=== PATIENT | male | born 1990 | race Caucasian/White ===

== ENCOUNTER → 2022-08-21 | Day surgery (SDC) | payer OTHER, MEDICAID ==
[~2022-08-21] MED LIST: Bupivacaine 0.5% 50 ML MDV ONE; Ketorolac 30 MG/ML SDV ONE; Lactated Ringers 1,000 ML IV ONE; Lactated Ringers 1,000 ML IV SCH; Lidocaine 1% PF 2 ML SDV ONE; Lidocaine 1% with EPINEPHrine 1:100,000 50 ML MDV ONE; Midazolam 1 MG/ML 2 ML SDV ONE; Propofol 200 MG/20 ML SDV ONE; cefOXitin 2 GM in Sodium Chloride 0.9% 50 ML IV ONE; fentaNYL 100 MCG/2 ML SDV ONE; fentaNYL 50 MCG/ML SDV IVPUSH PRN; hydrOXYzine HCL 100 MG/2 ML SDV IM ONE
== END ==
LOC: JP.SDS 06:00
DX: R59.0 Localized enlarged lymph nodes (principal); Z79.899 Other long term (current) drug therapy
CPT/HCPCS: 38500; 87070; 87075; 87102; 87205; 87220; 88307; 88341; 88342; 88364; 88365; J0694; J1885; J2250; J2704; J3010; J3410; J3490; J7120

== ENCOUNTER 2023-08-09 10:36 | Emergency (ER) | payer MEDICAID ==
[2023-08-09] MEDS ORDERED: Sodium Chloride 0.9% 1,000 ML IV SCH (12:45)
[2023-08-09] MEDS ORDERED: cefTRIAXone 1 GM in Sodium Chloride 0.9% 50 ML IV ONE (12:46)
[2023-08-09] MEDS ORDERED: Furosemide 40 MG/4 ML VIAL IVPUSH ONE (12:46)
[2023-08-09] MEDS ORDERED: diphenhydrAMINE 50 MG/ML SDV IVPUSH ONE (12:47)
[2023-08-09 13:15] LABS: BASOPHILS ABSOLUTE AUTO 0.08 K/uL (0.00-0.10); BASOPHILS PERCENT AUTO 0.6 % (0.1-1.3); EOSINOPHILS ABSOLUTE AUTO 0.16 K/uL (0.00-0.40); EOSINOPHILS PERCENT AUTO 1.2 % (0.0-5.4); HEMATOCRIT 34.8 % (38.4-49.7); HEMOGLOBIN 11.6 g/dL (12.9-16.9); IMMATURE GRAN ABSOLUTE AUTO 0.14 K/uL (0.00-0.23); IMMATURE GRAN PERCENT AUTO 1.1 % (0.0-0.7); LYMPHOCYTES ABSOLUTE AUTO 1.96 K/uL (0.8-3.3); LYMPHOCYTES PERCENT AUTO 15.1 % (11.4-47.7); MEAN CORPUSCULAR HEMOGLOBIN 35.7 pg (31.6-35.5); MEAN CORPUSCULAR HGB CONC 33.3 g/dL (31.6-35.5); MEAN CORPUSCULAR VOLUME 107.1 fL (81.4-99.0); MONOCYTES ABSOLUTE AUTO 1.18 K/uL (0.20-0.90); MONOCYTES PERCENT AUTO 9.1 % (3.3-12.6); NEUTROPHILS ABSOLUTE AUTO 9.44 K/uL (1.0-7.6); NEUTROPHILS PERCENT AUTO 72.9 % (40.0-78.1); PLATELET COUNT,PLT 433 K/uL (130-375); RED BLOOD CELL COUNT 3.25 M/uL (4.14-5.76)
[2023-08-09 13:16] LABS: CARBOXYHEMOGLOBIN 6.3 % (0.0-1.6); METHEMOGLOBIN 0.7 %; O2 SATURATION VENOUS 70.8; OXYHEMOGLOBIN 65.8 %; PCO2 VENOUS 58.9 mm/Hg; PO2 VENOUS 44.8 mm/Hg; TOTAL HEMOGLOBIN 11.8 g/dL (13.5-18.0)
[2023-08-09 13:44] LABS: APPEARANCE,URINE CLEAR (CLEAR); BILIRUBIN,URINE NEGATIVE (NEGATIVE); COLOR,URINE YELLOW (YELLOW); GLUCOSE,URINE NEGATIVE (NEGATIVE); KETONES,URINE NEGATIVE (NEGATIVE); LEUKOCYTE ESTERASE,URINE NEGATIVE (NEGATIVE); NITRITE,URINE NEGATIVE (NEGATIVE); OCCULT BLOOD,URINE TRACE-INTACT (NEGATIVE); PH,URINE 6.5 (5.0-8.0); PROTEIN,URINE NEGATIVE (NEGATIVE); UROBILINOGEN,URINE 0.2 EU/dL (0.2-1.0)
[2023-08-09 13:55] LABS: BASE EXCESS VENOUS 5.2 mm/L; BICARBONATE,VENOUS 31.7 mmol/L; PH,VENOUS 7.351 (7.350-7.450)
[2023-08-09 14:04] LABS: AMORPHOUS SEDIMENT,URINE NOT SEEN; BACTERIA,URINE NOT SEEN; EPITHELIAL CELLS,URINE NOT SEEN; MUCUS,URINE NOT SEEN; RBC,URINE NOT SEEN (0-5); WBC,URINE NOT SEEN (0-5)
[2023-08-09 14:05] LABS: AMPHETAMINES SCREEN, URINE NEGATIVE (NEGATIVE); BARBITURATE SCREEN,URINE NEGATIVE (NEGATIVE); BENZODIAZEPINES SCREEN,URINE NEGATIVE (NEGATIVE); METHADONE SCREEN, URINE NEGATIVE (NEGATIVE); METHAMPHETAMINES SCREEN, URINE NEGATIVE (NEGATIVE); OXYCODONE SCREEN,URINE NEGATIVE (NEGATIVE); PROPOXYPHENE SCREEN,URINE NEGATIVE (NEGATIVE); THC SCREEN,URINE 50 NG/ML NEGATIVE (NEGATIVE)
[2023-08-09 14:16] LABS: A/G RATIO 0.5 (1.2-2.2); ALANINE AMINOTRANSFERASE,ALT 52 U/L (12-78); ALKALINE PHOSPHATASE 214 U/L (46-116); ANION GAP 10.8 mmol/L (5.0-14.0); ASPARTATE AMNIOTRANSFERASE,AST 131 U/L (15-37); BILIRUBIN TOTAL 0.8 mg/dL (0.2-1.0); BLOOD UREA NITROGEN,BUN 1 mg/dL (7-18); CALCIUM 8.1 mg/dL (8.5-10.1); CARBON DIOXIDE,CO2 32 mmol/L (21-32); CHLORIDE,CL 96 mmol/L (100-108); CREATININE 0.6 mg/dL (0.8-1.3); EST CRCL DRUG DOSING (CG) 143.89 mL/min; ESTIMATED GFR 129 mL/min (>60); GLUCOSE RANDOM 95 mg/dL (74-106); POTASSIUM,K 3.8 mmol/L (3.6-5.2); PRO B-TYPE NATRIUR PEPT,BNPPRO 114 pg/mL (5-125); PROTEIN TOTAL,TP 6.4 g/dL (6.4-8.2); SODIUM,NA 135 mmol/L (140-148); TROPONIN I HIGH SENSITIVITY 4.9 pg/mL (<=60.3)
[2023-08-09 14:36] LABS: INR 1.1; PROTHROMBIN TIME 11.1 sec (9.2-10.6)
[2023-08-09] MEDS ORDERED: Iopamidol 612 MG/ML 100 ML Bottle IV ONE (14:46)
[2023-08-09] MEDS ORDERED: Sodium Chloride 0.9% 10 ML Syringe FLUSH ONE (14:46)
[2023-08-09] MEDS ORDERED: Sodium Chloride 0.9% 50 ML IV ONE (14:46)
[2023-08-09 15:03] LABS: CORONAVIRUS COVID-19 NAA NEGATIVE (NEGATIVE); INFLUENZA A NAA NEGATIVE (NEGATIVE); INFLUENZA B NAA NEGATIVE (NEGATIVE); RESPIRATORY SYNCYTIAL VIR NAA NEGATIVE (NEGATIVE)
[2023-08-09] MEDS ORDERED: Nicotine Polacrilex 2 MG Gum CHEW PRN (18:37)
[2023-08-09] MEDS ORDERED: Vancomycin 1 GM SDV ONE (18:39)
== END 2023-08-09 20:54 ==
LOC: JP.ED 10:36
DX: A41.9 Sepsis, unspecified organism (principal); J18.9 Pneumonia, unspecified organism; K70.9 Alcoholic liver disease, unspecified; L03.90 Cellulitis, unspecified; R60.1 Generalized edema; E66.9 Obesity, unspecified; F17.210 Nicotine dependence, cigarettes, uncomplicated; Z68.35 Body mass index [BMI] 35.0-35.9, adult; Z20.822 Contact with and (suspected) exposure to COVID-19; Z79.899 Other long term (current) drug therapy
CPT/HCPCS: 0241U; 36415; 71260; 74177; 80053; 80305; 80307; 81001; 82140; 82803; 83605; 83690; 83880; 84145; 84484; 85025; 85379; 85610; 87040; 93005; 96361; 96365; 96366; 96367; 96375; 99285; A9270; J0696; J1200; J1940; J3370; J3490; J7030; J7050; Q9967

== ENCOUNTER 2024-02-25 07:20 | Inpatient (IN) | payer MEDICAID ==
[2024-02-25 07:43] LABS: BASOPHILS ABSOLUTE AUTO 0.05 K/uL (0.00-0.10); BASOPHILS PERCENT AUTO 0.2 % (0.1-1.3); EOSINOPHILS PERCENT AUTO 0.1 % (0.0-5.4); HEMATOCRIT 50.8 % (38.4-49.7); IMMATURE GRAN ABSOLUTE AUTO 0.06 K/uL (0.00-0.23); IMMATURE GRAN PERCENT AUTO 0.3 % (0.0-0.7); LYMPHOCYTES ABSOLUTE AUTO 2.76 K/uL (0.8-3.3); LYMPHOCYTES PERCENT AUTO 13.6 % (11.4-47.7); MEAN CORPUSCULAR HGB CONC 35.4 g/dL (31.6-35.5); MEAN CORPUSCULAR VOLUME 84.7 fL (81.4-99.0); MONOCYTES ABSOLUTE AUTO 0.75 K/uL (0.20-0.90); MONOCYTES PERCENT AUTO 3.7 % (3.3-12.6); NEUTROPHILS ABSOLUTE AUTO 16.58 K/uL (1.0-7.6); NEUTROPHILS PERCENT AUTO 82.1 % (40.0-78.1); PLATELET COUNT,PLT 177 K/uL (130-375); WHITE BLOOD CELL COUNT,WBC 20.2 K/uL (3.2-11.0)
[2024-02-25 07:47] LABS: EOSINOPHILS ABSOLUTE AUTO 0.02 K/uL (0.00-0.40)
[2024-02-25 08:11] LABS: LACTIC ACID 1.3 mmol/L (0.4-2.0)
[2024-02-25 08:16] LABS: A/G RATIO 0.6 (1.2-2.2); ALANINE AMINOTRANSFERASE,ALT 14 U/L (12-78); ALKALINE PHOSPHATASE 80 U/L (46-116); ASPARTATE AMNIOTRANSFERASE,AST 45 U/L (15-37); BILIRUBIN TOTAL 1.7 mg/dL (0.2-1.0); BLOOD UREA NITROGEN,BUN 13 mg/dL (7-18); C-REACTIVE PROTEIN 12.47 mg/dL (<0.50); CALCIUM 9.9 mg/dL (8.5-10.1); CARBON DIOXIDE,CO2 26 mmol/L (21-32); CHLORIDE,CL 98 mmol/L (100-108); CREATININE 1.3 mg/dL (0.8-1.3); EST CRCL DRUG DOSING (CG) 68.99 mL/min; ESTIMATED GFR 73 mL/min (>60); GLUCOSE RANDOM 115 mg/dL (74-106); PROTEIN TOTAL,TP 10.4 g/dL (6.4-8.2); SODIUM,NA 137 mmol/L (140-148)
[2024-02-25 08:24] LABS: CORONAVIRUS COVID-19 NAA NEGATIVE (NEGATIVE); INFLUENZA A NAA NEGATIVE (NEGATIVE); INFLUENZA B NAA POSITIVE (NEGATIVE); RESPIRATORY SYNCYTIAL VIR NAA NEGATIVE (NEGATIVE)
[2024-02-25] MEDS: cefTRIAXone 2 GM in Sodium Chloride 0.9% 50 ML IV ONE (08:30)
[2024-02-25] MEDS: Sodium Chloride 0.9% 1,000 ML IV SCH ×3 (08:30→14:03)
[2024-02-25 08:45] LABS: BICARBONATE,ARTERIAL 21.3 mmol/L (22.0-26.0); CARBOXYHEMOGLOBIN 3.8 % (0.0-1.6); METHEMOGLOBIN 0.9 %; O2 SATURATION ARTERIAL 96.4 % (95.0-98.0); OXYHEMOGLOBIN 91.9 %; PCO2 ARTERIAL 34.1 mmHg (35.0-42.0); PO2 ARTERIAL 78.1 mmHg (75.0-100.0); TOTAL HEMOGLOBIN 15.1 g/dL (13.5-18.0)
[2024-02-25 08:47] LABS: APPEARANCE,URINE CLEAR (CLEAR); BILIRUBIN,URINE NEGATIVE (NEGATIVE); COLOR,URINE YELLOW (YELLOW); GLUCOSE,URINE NEGATIVE (NEGATIVE); KETONES,URINE NEGATIVE (NEGATIVE); LEUKOCYTE ESTERASE,URINE NEGATIVE (NEGATIVE); NITRITE,URINE NEGATIVE (NEGATIVE); OCCULT BLOOD,URINE SMALL (NEGATIVE); PROTEIN,URINE 100 mg/dL (NEGATIVE)
[2024-02-25] MEDS: Calcium Gluconate 10% 1 GM/10 ML SDV IVPUSH ONE (08:47)
[2024-02-25 08:54] LABS: AMORPHOUS SEDIMENT,URINE RARE; BACTERIA,URINE RARE; EPITHELIAL CELLS,URINE NOT SEEN; MUCUS,URINE NOT SEEN; RBC,URINE 0-5 (0-5)
[2024-02-25 08:55] LABS: AMPHETAMINES SCREEN, URINE NEGATIVE (NEGATIVE); BARBITURATE SCREEN,URINE NEGATIVE (NEGATIVE); BENZODIAZEPINES SCREEN,URINE NEGATIVE (NEGATIVE); METHADONE SCREEN, URINE NEGATIVE (NEGATIVE); METHAMPHETAMINES SCREEN, URINE NEGATIVE (NEGATIVE); OXYCODONE SCREEN,URINE NEGATIVE (NEGATIVE); PROPOXYPHENE SCREEN,URINE NEGATIVE (NEGATIVE); THC SCREEN,URINE 50 NG/ML PRESUMPTIVE POSITIVE (NEGATIVE)
[2024-02-25] MEDS: Furosemide 40 MG/4 ML VIAL IVPUSH ONE (08:55)
[2024-02-25] MEDS ORDERED: Potassium Chloride 20 MEQ in Premix Bag 1 BAG IV ONE (09:00)
[2024-02-25 09:01] LABS: POTASSIUM,K 1.4 mmol/L (3.6-5.2)
[2024-02-25 09:02] LABS: ANION GAP 14.4 mmol/L (5.0-14.0)
[2024-02-25] MEDS: LORazepam 2 MG/ML SDV IVPUSH ONE (09:06)
[2024-02-25] MEDS: Potassium Chloride 20 MEQ Tab.ER PO ONE ×3 (09:15→20:49)
[2024-02-25] MEDS: Naloxone 0.4 MG/ML SDV ONE (09:21)
[2024-02-25] MEDS: Potassium Phosphates 15 MMOLE in Sodium Chloride 0.9% 250 ML IV ONE (09:27)
[2024-02-25 11:43] LABS: MAGNESIUM 2.2 mg/dL (1.8-2.4)
[2024-02-25 11:46] LABS: POTASSIUM,K 2.1 mmol/L (3.6-5.2)
[2024-02-25] MEDS: Ondansetron 4 MG/2 ML SDV IVPUSH ONE (13:03)
[2024-02-25] MEDS ORDERED: Ondansetron 4 MG/2 ML SDV IV PRN (13:45)
[2024-02-25] MEDS ORDERED: Magnesium Hydroxide 400 MG/5 ML Susp 30 ML Cup PO PRN (13:45)
[2024-02-25] MEDS ORDERED: Ondansetron 4 MG Tab.DIS PO PRN (13:45)
[2024-02-25] MEDS ORDERED: Sennosides/Docusate Sodium 50-8.6 MG Tab PO PRN (13:45)
[2024-02-25] MEDS ORDERED: Nicotine 14 MG/24 Hr Patch TRDERM PRN (13:45)
[2024-02-25] MEDS: Potassium Chloride 10 MEQ in Premix Bag 1 BAG IV SCH ×2 (14:03→20:49)
[2024-02-25] MEDS: Phosphorus #1 250 MG Tab PO ONE (15:10)
[2024-02-25] MEDS: OLANZapine 5 MG Tab PO SCH (20:14)
[2024-02-25] MEDS: LORazepam 1 MG Tab PO ONE (20:14)
[2024-02-25] MEDS: Gabapentin 300 MG Cap PO SCH (20:15)
[2024-02-25] MEDS: Buprenorphine/Naloxone 2-0.5 MG Tab.SL SL SCH (20:15)
[2024-02-25] MEDS ORDERED: guaiFENesin 100 MG/5 ML Soln 10 ML UD Cup PO PRN (20:49)
[2024-02-25] MEDS ORDERED: Non-Formulary Medication 1 Each (Buprenorphine Hcl/Naloxone Hcl [Suboxone 4 Mg-1 Mg Sl Fil PO SCH (21:00)
[2024-02-25] MEDS ORDERED: Non-Formulary Medication 1 Each (Olanzapine [Olanzapine] 10 MG Tablet) PO SCH (21:00)
[2024-02-26 05:39] LABS: HEMATOCRIT 36.8 % (38.4-49.7); HEMOGLOBIN 13.1 g/dL (12.9-16.9); MEAN CORPUSCULAR HGB CONC 35.6 g/dL (31.6-35.5); MEAN CORPUSCULAR VOLUME 84.2 fL (81.4-99.0); RED BLOOD CELL COUNT 4.37 M/uL (4.14-5.76); WHITE BLOOD CELL COUNT,WBC 13.8 K/uL (3.2-11.0)
[2024-02-26 06:11] LABS: A/G RATIO 0.6 (1.2-2.2); ALANINE AMINOTRANSFERASE,ALT 12 U/L (12-78); ALBUMIN 2.6 g/dL (3.4-5.0); ALKALINE PHOSPHATASE 52 U/L (46-116); ASPARTATE AMNIOTRANSFERASE,AST 35 U/L (15-37); BILIRUBIN TOTAL 0.6 mg/dL (0.2-1.0); BLOOD UREA NITROGEN,BUN 10 mg/dL (7-18); CALCIUM 7.9 mg/dL (8.5-10.1); CARBON DIOXIDE,CO2 24 mmol/L (21-32); CHLORIDE,CL 109 mmol/L (100-108); CREATININE 0.9 mg/dL (0.8-1.3); EST CRCL DRUG DOSING (CG) 99.65 mL/min; ESTIMATED GFR 114 mL/min (>60); GLUCOSE RANDOM 91 mg/dL (74-106); PROTEIN TOTAL,TP 6.9 g/dL (6.4-8.2); SODIUM,NA 144 mmol/L (140-148)
[2024-02-26 06:18] LABS: ANION GAP 12.9 mmol/L (5.0-14.0); POTASSIUM,K 1.9 mmol/L (3.6-5.2)
[2024-02-26] MEDS: Potassium Chloride 20 MEQ Tab.ER PO ONE ×3 (06:41→21:28)
[2024-02-26] MEDS ORDERED: Potassium Phos in 0.9 % NaCl 15 MMOL in Premix Bag 1 BAG IV ONE (07:00)
[2024-02-26] MEDS: Potassium Phosphates 15 MMOLE in Sodium Chloride 0.9% 250 ML IV ONE (07:54)
[2024-02-26] MEDS: Phosphorus #1 250 MG Tab PO ONE (11:06)
[2024-02-26] MEDS: cefTRIAXone 2 GM in Sodium Chloride 0.9% 50 ML IV SCH (11:06)
[2024-02-26] MEDS: Doxycycline 100 MG Cap PO SCH (11:06)
[2024-02-26] MEDS: Potassium Chloride 10 MEQ in Premix Bag 1 BAG IV SCH ×2 (15:03→21:31)
[2024-02-26] MEDS: Nicotine Polacrilex 2 MG Gum CHEW PRN (15:07)
[2024-02-26] MEDS: LORazepam 0.5 MG Tab PO PRN (15:27)
[2024-02-26] MEDS ORDERED: Potassium Chloride 10 MEQ in Premix Bag 3 BAG IV ONE (21:19)
[2024-02-26] MEDS: Acetaminophen 325 MG Tab PO PRN (22:42)
[2024-02-27 05:45] LABS: HEMATOCRIT 35.6 % (38.4-49.7); HEMOGLOBIN 12.6 g/dL (12.9-16.9); MEAN CORPUSCULAR HEMOGLOBIN 29.9 pg (31.6-35.5); MEAN CORPUSCULAR HGB CONC 35.4 g/dL (31.6-35.5); MEAN CORPUSCULAR VOLUME 84.4 fL (81.4-99.0); RED BLOOD CELL COUNT 4.22 M/uL (4.14-5.76); WHITE BLOOD CELL COUNT,WBC 10.8 K/uL (3.2-11.0)
[2024-02-27 06:14] LABS: A/G RATIO 0.5 (1.2-2.2); ALANINE AMINOTRANSFERASE,ALT 16 U/L (12-78); ALBUMIN 2.2 g/dL (3.4-5.0); ALKALINE PHOSPHATASE 48 U/L (46-116); BILIRUBIN TOTAL 0.7 mg/dL (0.2-1.0); BLOOD UREA NITROGEN,BUN 5 mg/dL (7-18); C-REACTIVE PROTEIN 6.59 mg/dL (<0.50); CALCIUM 7.9 mg/dL (8.5-10.1); CARBON DIOXIDE,CO2 22 mmol/L (21-32); CHLORIDE,CL 111 mmol/L (100-108); CREATININE 0.6 mg/dL (0.8-1.3); EST CRCL DRUG DOSING (CG) 149.26 mL/min; ESTIMATED GFR 129 mL/min (>60); GLUCOSE RANDOM 89 mg/dL (74-106); POTASSIUM,K 3.2 mmol/L (3.6-5.2); PROTEIN TOTAL,TP 6.4 g/dL (6.4-8.2); SODIUM,NA 144 mmol/L (140-148)
[2024-02-27 06:16] LABS: ANION GAP 14.2 mmol/L (5.0-14.0); ASPARTATE AMNIOTRANSFERASE,AST 93 U/L (15-37)
[2024-02-27 06:17] LABS: CREATINE KINASE,CK 6009 U/L (39-308)
[2024-02-27] MEDS: Potassium Chloride 20 MEQ Tab.ER PO ONE ×3 (08:39→20:39)
[2024-02-27] MEDS: Potassium Chloride 10 MEQ in Premix Bag 1 BAG IV SCH ×3 (08:39→20:39)
[2024-02-27 14:32] LABS: POTASSIUM,K 3.3 mmol/L (3.6-5.2)
[2024-02-27] MEDS: Benzocaine/Cetylpyridinium/Menthol Lozenge MUCMEM PRN (17:37)
[2024-02-28 05:48] LABS: HEMATOCRIT 35.4 % (38.4-49.7); HEMOGLOBIN 12.5 g/dL (12.9-16.9); MEAN CORPUSCULAR HEMOGLOBIN 29.7 pg (31.6-35.5); MEAN CORPUSCULAR HGB CONC 35.3 g/dL (31.6-35.5); MEAN CORPUSCULAR VOLUME 84.1 fL (81.4-99.0); RED BLOOD CELL COUNT 4.21 M/uL (4.14-5.76); WHITE BLOOD CELL COUNT,WBC 8.8 K/uL (3.2-11.0)
[2024-02-28 06:12] LABS: CALCIUM 8.3 mg/dL (8.5-10.1); CREATININE 0.7 mg/dL (0.8-1.3); EST CRCL DRUG DOSING (CG) 127.93 mL/min; POTASSIUM,K 3.1 mmol/L (3.6-5.2)
[2024-02-28 06:35] LABS: ANION GAP 13.1 mmol/L (5.0-14.0)
[2024-02-28] MEDS: Potassium Chloride 20 MEQ Tab.ER PO ONE (08:57)
[2024-02-28] MEDS: Potassium Chloride 10 MEQ in Premix Bag 1 BAG IV SCH (09:03)
== END 2024-02-28 11:20 | disposition home or self-care (01) | DRG 640 ==
LOC: JP.ED 07:20 → JP.MS 12:51 → OBSVTOIN 02-26 10:47
PROVIDERS: ADMIT Internal Medicine; ATTEND Internal Medicine
DX: E87.6 Hypokalemia (principal); J96.01 Acute respiratory failure with hypoxia; M62.82 Rhabdomyolysis; J10.1 Influenza due to other identified influenza virus with other respiratory manifestations; G89.29 Other chronic pain; J20.8 Acute bronchitis due to other specified organisms; F17.210 Nicotine dependence, cigarettes, uncomplicated; Z79.899 Other long term (current) drug therapy; Z98.890 Other specified postprocedural states
CPT/HCPCS: 0241U; 36415; 36600; 71045; 71045-26; 80048; 80053; 80305-QW; 80307; 81001; 82550; 82803; 83605; 83735; 84100; 84132; 84145; 84443; 84484; 85025; 85027; 86140; 87040; 87077; 93005; 96361; 96365; 96366; 96367; 96375; 97161-GP; 99222; 99232; 99238; 99285-25; A9270-GY; G0378; J0612; J0696; J1940; J2060; J2405; J3480; J3490; J7030; J7050